=== PATIENT | male | born 1950 | race Caucasian/White ===

== ENCOUNTER 2018-08-21 05:42 | Day surgery (SDC) | payer MEDICARE, OTHER ==
[2018-08-21] MEDS ORDERED: PROPOFOL 200 MG/20 ML VIAL IV ONE (07:00)
[2018-08-21] MEDS ORDERED: LACTATED RINGERS 1,000 ML ONE (08:13)
[2018-08-21 13:44] VITALS: BP 117/62; TEMP 97; O2SAT 100
--- NOTE | 2018-08-21 13:46 | OP ---
DATE OF PROCEDURE: 08/21/18 PREPROCEDURE DIAGNOSIS: 1. Heartburn. 2. Dysphagia. POSTPROCEDURE DIAGNOSIS: 1. Regular Z-line at 38 cm. 2. Otherwise, normal. PROCEDURE: 1. Esophagogastroduodenoscopy. SURGEON: Fernando Munguia MD COMPLICATIONS: No immediate complications. SEDATION: The patient was sedated via IV propofol by the Anesthesia Department. CONSENT: Prior to the procedure, risks, benefits and alternatives to the therapy were discussed with the patient. The risks included bleeding, infection, perforation and . The patient agreed to the procedure and signed a consent. PREPROCEDURE ANESTHESIA ASSESSMENT: An examination revealed no contraindication to sedation. Airway examination demonstrated a Mallampati class type 2, ASA grade assessment type 2. Throughout the procedure, the patient's blood pressure, pulse and oxygen saturation were monitored closely. PROCEDURE: The patient was placed in the left lateral decubitus position. Bite block was placed in the mouth between the teeth. The Olympus endoscope was introduced through the oropharynx, esophagus, stomach and the second portion of the duodenum. The scope was retracted and the mucosa visualized. The entirety of the exam was performed under direct visualization. Retroflexion was performed in the stomach. The patient tolerated the procedure well. FINDINGS: 1. The Z-line was regular and located at 38 cm from the incisors. There was no evident inflammation, abnormalities in the lining of the esophagus, strictures, varices, etc., were found throughout the esophagitis. 2. The stomach was normal. 3. The duodenum was normal. RECOMMENDATION: 1. Return the patient home. 2. Resume previous diet. 3. Continue with current lifestyle changes including lifting the head of the bed, avoiding caffeinated products, weight loss. 4. Continue present medications and acid suppressant medication. 5. Return to my office in the next two weeks. 6. The findings were discussed with the patient and the patient's family members. #[id number] [facility]
== END 2018-08-21 13:30 | disposition home or self-care (01) ==
LOC: AMB 05:42
PROVIDERS: ATTEND Internal Medicine Gastroenterology
DX: R12 Heartburn (principal); R13.10 Dysphagia, unspecified; I25.10 Atherosclerotic heart disease of native coronary artery without angina pectoris; I10 Essential (primary) hypertension; I25.2 Old myocardial infarction; K21.9 Gastro-esophageal reflux disease without esophagitis; Z79.02 Long term (current) use of antithrombotics/antiplatelets; Z79.82 Long term (current) use of aspirin; Z79.899 Other long term (current) drug therapy
CPT/HCPCS: 00731; 43235; J3490; J7120